=== PATIENT | female | born 1995 | race African-American/Black ===

== ENCOUNTER 2022-05-05 18:58 | Emergency (ER) | payer OTHER ==
--- OUTSIDE RECORDS SUMMARY | 2022-05-05 19:02 | XMS REPORT | Continuity of Care Document ---
:1995 Author Organization [facility] t Address [address] [place] [address] Care Team Providers Name Role Phone NEYMAR MONTERO Primary Care Physician Unavailable CLARISSA SIGALA Attending Clinician Unavailable NIRALI LAMB Attending Clinician Unavailable CHRETIEN_F Attending Clinician Unavailable Lab, Ang - Db Attending Clinician Unavailable Clarissa Sgiala MD Attending Clinician CHOCO MANE Attending Clinician Unavailable Doctor Unassigned, [place] Attending Clinician Unavailable Mary Harden Attending Clinician [phone] WATERS_S Attending Clinician Unavailable Melanie Briones Attending Clinician [phone] ARMEN MERCER Attending Clinician Unavailable Armen Herrera Attending Clinician CRESCENCIO Attending Clinician Unavailable Michelle Cash Attending Clinician [phone] Allyn Cárdenas MA Attending Clinician Unavailable CHRETIEN_F Admitting Clinician Unavailable WATERS_S Admitting Clinician Unavailable JOURDANROCARLOS_Jayda Admitting Clinician Unavailable Payers Payer Name Policy Type Policy Number Effective Date Expiration Date [facility] [id number] 2021 00:00:00 INDIGENT PROGRAM [id number] Problems Condition Condition Condition Status Onset Resolution Last Treating Co mments Source Name Details Category Date Date Treatment Clinician Date PENDING PENDING Diagnosis Active 2021-062022-04-15 Memoria Active 0 12:31:00 l 03/28/2022 00:00: Justin jefferson 00 [facility] Conjunctiv Problem Active S [place] itis itis 6-28 Communi 00:00: ty 00 [facility] Acute Acute Problem Active [place] conjunctiv Conjunctiv 6-28 Co mmuni itis of itis of 00:00: ty bilateral Bilateral 00 [facility] Clinics Generalize Generalize Problem Active S [place] d anxiety d Anxiety 03-04 Comm uni disorder Disorder 00:00: ty 00 [facility] Oral Oral Problem Active [place] contracept Contracept 03-04 Co mmuni ion ion 00:00: ty 00 [facility] Polycystic Polycystic Problem Active S [place] ovary Ovary 03-04 Communi syndrome Syndrome 00:00: ty 00 [facility] Non-rheuma Non-rheuma Problem Active S [place] tic mitral tic Mitral 5-28 Co mmuni regurgitat Regurgitat 00:00: ty ion ion 00 [facility] Elevated Elevated Problem Active [place] blood-pres Blood-pres 5-28 Co mmuni sure sure 00:00: ty reading Reading 00 Hospita without without l diagnosis Diagnosis Clin ics of of hypertensi Hypertensi on on Family Family Problem Active [place] history of History of 5-28 Co mmuni Cardiovasc Cardiovasc 00:00: ty [facility] Clin[facility] Morbid Morbid Disease Active Univers obesity obesity 09-23 ity of due to due to 00:00: [place] excess excess 00 Medical calories calories Branch Controlled Controlled Disease Active U nivers type 2 type 2 09-23 ity of diabetes diabetes 00:00: [place] mellitus mellitus 00 Medica l without without Branch complicati complicati on, on, without without long-term long-term current current use of use of insulin insulin Hypertensi Hypertensi Disease Active U nivers on on 09-23 ity of 00:00: [place] 00 Medical Branch Allergies, Adverse Reactions, Alerts Allergy Allergy Status Severity Reaction(s) Onset Inactive Treating Comm ents Source Name Type Date Date Clinician Flu Propensi Active [facility] Medicine ty to 09-14 ity of adverse 00:00: [place] reaction 00 Medical s Branch FLU DRUG Active High [facility] MEDICINE - ity of 00:00: [place] 00 Medical Branch Social History Social Habit Start Date Stop Date Quantity Comments Source Exposure to 2022-04-23 2022-05-03 Not sure [facility] SARS-CoV-2 00:00:00 13:44:00 [facility] (event) Branch Alcohol intake 2021-03-02 2021-03-02 Current University 00:00:00 00:00:00 non-drinker of [facility] alcohol (finding) [place] Tobacco use and 2018-09-14 2018-09-14 Smokeless tobacco Un iversity of exposure 00:00:00 00:00:00 [facility]user [facility]igned At [birth year] [facility] Smoking Status Start Date Stop Date Source Never smoked tobacco [facility] Medications Ordered Filled Start Stop Current Ordering Indication Dosage Frequency Signature Comments Components Source Medication Medication Date Date Medication? Clinician (SIG) Name Name semaglutide 2021-06 Yes [id number] 1mg inject 1 Univers (OZEMPIC) 1 1-08 mg under ity of mg/dose (4 00:00: the skin Sid as mg/3 mL) 00 weekly. [facility] semaglutide 2021-06 Yes [id number] 1mg inject 1 Univers (OZEMPIC) 1 1-08 mg under ity of mg/dose (4 00:00: the skin Sid as mg/3 mL) 00 weekly. [facility] semaglutide 2021-06 Yes [id number] 1mg inject 1 Univers (OZEMPIC) 1 1-08 mg under ity of mg/dose (4 00:00: the skin Sid as mg/3 mL) 00 weekly. [facility] semaglutide 2021-06 Yes [id number] 1mg inject 1 Univers (OZEMPIC) 1 1-08 mg under ity of mg/dose (4 00:00: the skin Sid as mg/3 mL) 00 weekly. [facility] semaglutide 2021-0 Yes [id number] Inject 0.5 Univers (OZEMPIC) 9-23 mg weekly ity o f 0.25 mg or 00:00: [place] 0.5 mg(2 00 Medical mg/1.5 mL) Branch PnIj semaglutide 2021- No [id number] Inject 0.5 Univers (OZEMPIC) 9-23 11-08 mg weekly ity of 0.25 mg or 00:00: 00:00 [place] 0.5 mg(2 00 :00 Medical mg/1.5 mL) Branch PnIj semaglutide 2021- No [id number] Inject 0.5 Univers (OZEMPIC) 9-23 11-08 mg weekly ity of 0.25 mg or 00:00: 00:00 [place] 0.5 mg(2 00 :00 Medical mg/1.5 mL) Branch PnIj metformin 2021-0 Yes [id number] 500mg Take 1 Univers ER 500 mg 9-22 tablet by ity o f 24 hr 00:00: mouth 2 [place] tablet 00 (two) Medical times Branch daily before breakfast and dinner. metformin 2021-0 Yes [id number] 500mg Take 1 Univers ER 500 mg 9-22 tablet by ity o f 24 hr 00:00: mouth 2 [place] tablet 00 (two) Medical times Branch daily before breakfast and dinner. metformin 2021-0 Yes [id number] 500mg Take 1 Univers ER 500 mg 9-22 tablet by ity o f 24 hr 00:00: mouth 2 [place] tablet 00 (two) Medical times Branch daily before breakfast and dinner. metformin 2021-0 Yes [id number] 500mg Take 1 Univers ER 500 mg 9-22 tablet by ity o f 24 hr 00:00: mouth 2 [place] tablet 00 (two) Medical times Branch daily before breakfast and dinner. metformin 2021-0 Yes [id number] 500mg Take 1 Univers ER 500 mg 9-22 tablet by ity o f 24 hr 00:00: mouth 2 [place] tablet 00 (two) Medical times Branch daily before breakfast and dinner. metformin 2021-0 Yes [id number] 500mg Take 1 Univers ER 500 mg 9-22 tablet by ity o f 24 hr 00:00: mouth 2 [place] tablet 00 (two) Medical times Branch daily before breakfast and dinner. GLIPIZIDE 2021-0 Yes [id number] Take 1 U nivers XL 2.5 mg 9-05 tablet by ity o f 24 hr 00:00: mouth once [place] tablet 00 daily with Medical breakfast Branch GLIPIZIDE 2021-0 Yes [id number] Take 1 U nivers XL 2.5 mg 9-05 tablet by ity o f 24 hr 00:00: mouth once [place] tablet 00 daily with Medical breakfast Branch GLIPIZIDE 2021- Yes [id number] Take 1 U nivers XL 2.5 mg 9-05 tablet by ity o f 24 hr 00:00: mouth once [place] tablet 00 daily with Medical breakfast Branch GLIPIZIDE 2021- No [id number] Take 1 Univers XL 2.5 mg 9-05 11-08 tablet by ity of 24 hr 00:00: 00:00 mouth once [place] tablet 00 :00 daily with Medical breakfast Branch GLIPIZIDE 2021-2021- No [id number] Take 1 Univers XL 2.5 mg 9-05 11-08 tablet by ity of 24 hr 00:00: 00:00 mouth once [place] tablet 00 :00 daily with Medical breakfast Branch semaglutide Yes [id number] 0.25mg Univers (OZEMPIC) 6-29 weekly for ity of 0.25 mg or 00:00: 2 [place] 0.5 mg(2 00 then Medical mg/1.5 mL) increase Branc h PnIj to 0.5mg weekly if tolerate semaglutide Yes [id number] 0.25mg Univers (OZEMPIC) 6-29 weekly for ity of 0.25 mg or 00:00: 2 weeks , [place] 0.5 mg(2 00 then Medical mg/1.5 mL) increase Branc h PnIj to 0.5mg weekly if tolerate semaglutide 2021-0 Yes [id number] 0.25mg Univers (OZEMPIC) 6-29 weekly for ity of 0.25 mg or 00:00: 2 weeks , [place] 0.5 mg(2 00 then Medical mg/1.5 mL) increase Branc h PnIj to 0.5mg weekly if tolerate semaglutide 2021-0 Yes [id number] 0.25mg Univers (OZEMPIC) 6-29 weekly for ity of 0.25 mg or 00:00: 2 weeks , [place] 0.5 mg(2 00 then Medical mg/1.5 mL) increase Branc h PnIj to 0.5mg weekly if tolerate semaglutide 2021- No [id number] 0.25mg Univers (OZEMPIC) 6- 09-23 weekly for ity of 0.25 mg or 00:00: 00:00 2 weeks , [place] 0.5 mg(2 00 :00 then Medical mg/1.5 mL) increase Branc h PnIj to 0.5mg weekly if tolerate metformin Yes [id number] 1000mg Take 2 Univers ER 500 mg 6-08 tablets by ity of 24 hr 00:00: mouth 2 [place] tablet 00 (two) Medical times Branch daily before breakfast and dinner. metformin Yes [id number] 1000mg Take 2 Univers ER 500 mg 6-08 tablets by ity of 24 hr 00:00: mouth 2 [place] tablet 00 (two) Medical times Branch daily before breakfast and dinner. metformin Yes [id number] 1000mg Take 2 Univers ER 500 mg 6-08 tablets by ity of 24 hr 00:00: mouth 2 [place] tablet 00 (two) Medical times Branch daily before breakfast and dinner. metformin 2021- No [id number] 1000mg Take 2 Univers ER 500 mg 6-08 -22 tablets by ity of 24 hr 00:00: 00:00 mouth 2 [place] tablet 00 :00 (two) Medical times Branch daily before breakfast and dinner. glipiZIDE Yes [id number] 2.5mg Take 1 Univers XL 2.5 mg 6-05 tablet by ity o f 24 hr 00:00: mouth [place] tablet 00 daily with Medical breakfast. Branch glipiZIDE Yes [id number] 2.5mg Take 1 Univers XL 2.5 mg 6-05 tablet by ity o f 24 hr 00:00: mouth [place] tablet 00 daily with Medical breakfast. Branch glipiZIDE 2021- No [id number] 2.5mg Take 1 Univers XL 2.5 mg 6-05 09-05 tablet by ity of 24 hr 00:00: 00:00 mouth [place] tablet 00 :00 daily with Medical breakfast. Branch metoprolol 1-0 Yes 100mg Take 100 Un giovanni succinate 4-06 mg by ity of XL 50 mg 24 16:15: mouth 2 Sid as hr tablet 19 (two) Medical times Branch daily. metoprolol 2021-0 Yes 100mg Take 100 Un giovanni succinate 4-06 mg by ity of XL 50 mg 24 16:15: mouth 2 Sid as hr tablet 19 (two) Medical times Branch daily. metoprolol 2021-0 Yes 100mg Take 100 Un giovanni succinate 4-06 mg by ity of XL 50 mg 24 16:15: mouth 2 Sid as hr tablet 19 (two) Medical times Branch daily. metoprolol 2021-0 Yes 100mg Take 100 Un giovanni succinate 4-06 mg by ity of XL 50 mg 24 16:15: mouth 2 Sid as hr tablet 19 (two) Medical times Branch daily. metoprolol 1-0 Yes 100mg Take 100 Un giovanni succinate 4-06 mg by ity of XL 50 mg 24 16:15: mouth 2 Sid as hr tablet 19 (two) Medical times Branch daily. metoprolol 1-0 Yes 100mg Take 100 Un giovanni succinate 4-06 mg by ity of XL 50 mg 24 16:15: mouth 2 Sid as hr tablet 19 (two) Medical times Branch daily. metoprolol 1-0 Yes 100mg Take 100 Un giovanni succinate 4-06 mg by ity of XL 50 mg 24 16:15: mouth 2 Sid as hr tablet 19 (two) Medical times Branch daily. metoprolol 1-0 Yes 100mg Take 100 Un giovanni succinate 4-06 mg by ity of XL 50 mg 24 16:15: mouth 2 Sid as hr tablet 19 (two) Medical times Branch daily. metoprolol 2021-0 Yes 100mg Take 100 Un giovanni succinate 4-06 mg by ity of XL 50 mg 24 16:15: mouth 2 Sid as hr tablet 19 (two) Medical times Branch daily. glipizide glipizide No glipizide [place] ER 2.5 mg ER 2.5 mg ER 2.5 mg Communi tablet, tablet, tablet, ty extended extended extended Hos kiarra release 24 release 24 release 24 l hr TAKE 1 hr TAKE 1 hr TAKE 1 Clinics TABLET BY TABLET BY TABLET BY MOUTH ONCE MOUTH ONCE MOUTH ONCE DAILY AT DAILY AT DAILY AT THE SAME THE SAME THE SAME TIME EACH TIME EACH TIME EACH DAY WITH DAY WITH DAY WITH BREAKFAST BREAKFAST BREAKFAST metformin metformin No metformin [place] ER 500 mg ER 500 mg ER 500 mg Communi tablet,exte tablet,exte tablet,ext ty nded nded ended Hospita release 24 release 24 release 24 l hr TAKE 1 hr TAKE 1 hr TAKE 1 Clinics TABLET BY TABLET BY TABLET BY MOUTH TWICE MOUTH TWICE MOUTH DAILY DAILY TWICE DAILY metoprolol metoprolol No metoprolol [place] tartrate tartrate tartrate Com karena 100 mg 100 mg 100 mg ty tablet TAKE tablet TAKE tablet Hospita 1 TABLET BY 1 TABLET BY TAKE 1 l MOUTH TWICE MOUTH TWICE TABLET BY Clinics DAILY WITH DAILY WITH MOUTH FOOD FOR 90 FOOD FOR 90 TWICE DAYS DAYS DAILY WITH FOOD FOR 90 DAYS sertraline sertraline No 1 Q1D sertraline [place] 25 mg 25 mg 25 mg Communi tablet Take tablet Take tablet ty 1 tablet 1 tablet Take 1 Hospi ta every day every day tablet l by oral by oral every day Clin ics route as route as by oral directed. directed. route as directed. Tri-Sprinte Tri-Sprinte No Tri-Sprint [place] c (28) 0.18 c (28) 0.18 ec (28) Communi mg(7)/0.215 mg(7)/0.215 0.18 t y mg(7)/0.25 mg(7)/0.25 mg(7)/0.21 Hospita mg(7)-35 mg(7)-35 5 l mcg tablet mcg tablet mg(7)/0.25 Clinics TAKE 1 TAKE 1 mg(7)-35 TABLET BY TABLET BY mcg tablet MOUTH ONCE MOUTH ONCE TAKE 1 DAILY DAILY TABLET BY MOUTH ONCE DAILY glipizide glipizide No glipizide [place] ER 2.5 mg ER 2.5 mg ER 2.5 mg Communi tablet, tablet, tablet, ty extended extended extended Hos kiarra release 24 release 24 release 24 l hr TAKE 1 hr TAKE 1 hr TAKE 1 Clinics TABLET BY TABLET BY TABLET BY MOUTH ONCE MOUTH ONCE MOUTH ONCE DAILY AT DAILY AT DAILY AT THE SAME THE SAME THE SAME TIME EACH TIME EACH TIME EACH DAY WITH DAY WITH DAY WITH BREAKFAST BREAKFAST BREAKFAST metformin metformin No metformin [place] ER 500 mg ER 500 mg ER 500 mg Communi tablet,exte tablet,exte tablet,ext ty nded nded ended Hospita release 24 release 24 release 24 l hr TAKE 1 hr TAKE 1 hr TAKE 1 Clinics TABLET BY TABLET BY TABLET BY MOUTH TWICE MOUTH TWICE MOUTH DAILY DAILY TWICE DAILY metoprolol metoprolol No metoprolol [place] tartrate tartrate tartrate Com [place] 100 mg 100 mg 100 mg ty tablet TAKE tablet TAKE tablet Hospita 1 TABLET BY 1 TABLET BY TAKE 1 l MOUTH TWICE MOUTH TWICE TABLET BY Clinics DAILY WITH DAILY WITH MOUTH FOOD FOR 90 FOOD FOR 90 TWICE DAYS DAYS DAILY WITH FOOD FOR 90 DAYS Tri-Sprinte Tri-Sprinte No Tri-Sprint [place] c (28) 0.18 c (28) 0.18 ec (28) Communi mg(7)/0.215 mg(7)/0.215 0.18 t y mg(7)/0.25 mg(7)/0.25 mg(7)/0.21 Hospita mg(7)-35 mg(7)-35 5 l mcg tablet mcg tablet mg(7)/0.25 Clinics TAKE 1 TAKE 1 mg(7)-35 TABLET BY TABLET BY mcg tablet MOUTH ONCE MOUTH ONCE TAKE 1 DAILY DAILY TABLET BY MOUTH ONCE DAILY glipizide glipizide No glipizide [place] ER 2.5 mg ER 2.5 mg ER 2.5 mg Communi tablet, tablet, tablet, ty extended extended extended Hos kiarra release 24 release 24 release 24 l hr TAKE 1 hr TAKE 1 hr TAKE 1 Clinics TABLET BY TABLET BY TABLET BY MOUTH ONCE MOUTH ONCE MOUTH ONCE DAILY WITH DAILY WITH DAILY WITH BREAKFAST BREAKFAST BREAKFAST metformin metformin No metformin [place] ER 500 mg ER 500 mg ER 500 mg Communi tablet,exte tablet,exte tablet,ext ty nded nded ended Hospita release 24 release 24 release 24 l hr TAKE 2 hr TAKE 2 hr TAKE 2 Clinics TABLETS BY TABLETS BY TABLETS BY MOUTH TWICE MOUTH TWICE MOUTH DAILY DAILY TWICE BEFORE BEFORE DAILY BREAKFAST BREAKFAST BEFORE AND BEFORE AND BEFORE BREAKFAST SUPPER SUPPER AND BEFORE SUPPER metoprolol metoprolol No metoprolol [place] tartrate tartrate tartrate Com [place] 100 mg 100 mg 100 mg ty tablet TAKE tablet TAKE tablet Hospita 1 TABLET BY 1 TABLET BY TAKE 1 l MOUTH TWICE MOUTH TWICE TABLET BY Clinics DAILY WITH DAILY WITH MOUTH FOOD FOOD TWICE DAILY WITH FOOD polymyxin B polymyxin B No polymyxin [place] sulfate sulfate B sulfate Comm uni 10,000 10,000 10,000 ty unit-trimet unit-trimet unit-trime Hospita hoprim 1 hoprim 1 thoprim 1 l mg/mL eye mg/mL eye mg/mL eye Clinics drops drops drops INSTILL 1 INSTILL 1 INSTILL 1 DROP INTO DROP INTO DROP INTO AFFECTED AFFECTED AFFECTED EYE(S) BY EYE(S) BY EYE(S) BY OPHTHALMIC OPHTHALMIC OPHTHALMIC ROUTE EVERY ROUTE EVERY ROUTE 6 HOURS 6 HOURS EVERY 6 HOURS Vital Signs Vital Name Observation Time Observation Value Comments Source Systolic blood 2022-05-03 19:51:00 138 mm[Hg] [facility] Diastolic blood 2022-05-03 19:51:00 90 mm[Hg] [facility] Heart rate 2022-05-03 19:51:00 90 /min [facility] Body weight 2022-05-03 19:51:00 164.338 kg [facility] BMI 2022-05-03 19:51:00 64.18 kg/m2 [facility] Oxygen saturation 2022-05-03 19:51:00 97 /min [facility] in Arterial blood [facility] by Pulse oximetry BP Diastolic 2021-12-21 00:00:00 63 mm[Hg] [facility] Height 2021-12-21 00:00:00 64 [in_i] [facility] s BMI (Body Mass 2021-12-21 00:00:00 61.2 kg/m2 [facility] s BP Systolic 2021-12-21 00:00:00 143 mm[Hg] [facility] s Body Weight 2021-12-21 00:00:00 5708.8 [oz_av] [facility] s BP Diastolic 2021-08-06 00:00:00 86 mm[Hg] [facility] s Height 2021-08-06 00:00:00 64 [in_i] [facility] BMI (Body Mass 2021-08-06 00:00:00 60.7 kg/m2 [facility] s BP Systolic 2021-08-06 00:00:00 152 mm[Hg] [facility] Body Weight 2021-08-06 00:00:00 5660.8 [oz_av] [facility] s BP Diastolic 2021-03-04 00:00:00 85 mm[Hg] [facility] s Height 2021-03-04 00:00:00 64 [in_i] [facility] s BMI (Body Mass 2021-03-04 00:00:00 57.4 kg/m2 [facility] s BP Systolic 2021-03-04 00:00:00 156 mm[Hg] [facility] Body Weight 2021-03-04 00:00:00 5350.4 [oz_av] [facility] s Procedures Procedure Date / Time Performing Clinician Source Performed POCT HEMOGLOBIN A1C TEST 2022-05-03 20:00:00 Clarissa Sigala [facility] INSURANCE CORRESPONDENCE 2022-01-26 05:01:00 Doctor Unassigned, [facility] [place] [facility] Whole Blood Clotting Time 2018-02-24 00:00:00 [facility] Appendectomy [facility] [place] [facility] Plan of Care Planned Activity Planned Date Details Comments Source Diagnostic Test 2021-03-04 rapid SARS CoV 2 [facility] Pending 00:00:00 QL IA, respiratory Hospital Clinics specimen [code = rapid SARS CoV 2 Ag, QL IA, respiratory specimen] Diagnostic Test 2021-03-[address] test, [facility] Pending 00:00:00 urine [code = Hospital Clini cs test, urine] Instructions [facility] s Encounters Start End Encounter Admission Attending Care Care Encounter Source Date/Time Date/Time Type Type Clinicians Facility Department ID 2022-05-05 Outpatient [id number] Memoria 19:01:07 [id number] 2022-05-03 Outpatient [id number] [id number] Memoria 14:35:37 [id number] [place] [id number] 2022-05-05 2022-05-05 Outpatient CHRETIEN_F [facility] [id number] - [place] 00:00:00 00:00:00 110 Commun i ty Hospita l Clinics 2022-05-03 2022-05-03 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, 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 - Colin [facility] 1.2.840.1 [id number] Univers 14:45:00 15:00:00 [facility] [id number] [facility] 4.2.7.2.686 Sid as TERRANCE?BLEA [id number] [facility] [address] MEDICAL OFFICE BUILDING 2022-05-03 2022-05-03 Outpatient R JOVON [facility] [id number] Univers 14:00:00 14:23:15 [facility] 2022-05-03 2022-05-03 [facility] [id number] Univers 14:00:00 14:23:15 Visit Psychiatric hospital [id number] it y [facility] 4.2.7.2.686 Sid as TERRANCE?BLEA [id number] [address] MEDICAL OFFICE BUILDING 2022-05-03 2022-05-03 Patient Jovon [facility] 1.2.840.114 [id number] Univers 00:00:00 00:00:00 [facility] [id number] ity of [place]2.7.2.686 [place] C[place] [id number] Danielle Arriaga [address] [facility] 2022-04-12 2022-04-12 Outpatient ANTONIETTA, JUDYSE MALVIN 9600 MH 14:00:00 14:00:00 OBMARQUISRUMBora rendon [facility] 2022-03-17 2022-03-17 Refill Sigala, [facility] 1.2.840.114 [id number] Univers 00:00:00 00:00:00 [facility] [id number] it y of [place] 4.2.7.2.686 Sid as TERRANCE?BLEA [id number] [address] MEDICAL OFFICE [facility] 2022-03-17 2022-03-17 Refill Sigala, [facility] 1.2.840.114 [id number] Univers 00:00:00 00:00:00 [facility] HEALTH [id number] it y of [place] 4.2.7.2.686 Sid as TERRANCE?BLEA [id number] [address] OFFICE [facility] 2022-02-27 2022-02-27 Refill Sigala, [facility] 1.2.840.114 [id number] Univers 00:00:00 00:00:00 [facility] [id number] it y of [place] 4.2.7.2.686 Sid as TERRANCE?BLEA [id number] [address] OFFICE [facility] 2022-01-26 2022-01-26 Patient Jovon, [facility] 1.2.840.114 [id number] Univers 00:00:00 00:00:00 Secure Msg [place] MULTISPEC [id number] ity of [place]2.686 [place] [id number] [facility] AND OLIVER [address] [place] [address] DIABETES CLINIC 2022-01-26 2022-01-26 Orders Doctor ARIANNA 1.2.840.114 [id number] Univers 00:00:00 00:00:00 Only Unassigned, PJ 350.1.13.10 ity of [place] [facility] 4.2.7.2.686 Sid as [id number] [facility] 009 Branch 2021-12-22 2021-12-22 Patient Sigala, [facility] 1.2.840.114 [id number] Univers 00:00:00 00:00:00 Secure Msg [place] MULTISPEC [id number] ity of [place] 4[place]2.7.2.686 [place] [id number] [facility] AND BOYD [address] DIABETES CLINIC 2021-12-21 2021-12-21 Outpatient CHRETIEN_F [facility] 87 - [place] 00:00:00 00:00:00 628 Commun i ty Hospita [facility] 2021-12-21 2021-12-21 Outpatient Fina [facility] [id number] 00:00:00 00:00:00 Mary [id number] 2021-12-21 2021-12-21 Mary [facility] [place] 00:00:00 00:00:00 Fina [facility] mmuni 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 2021-12-01 2021-12-01 [facility] 1.2.840.114 [id number] Univers 14:00:00 14:36:10 Visit Psychiatric hospital [id number] it y of [place] 4.2.7.2.686 Sid as TERRANCE?BLEA [id number] Tx roxanaken [facility] [address] MEDICAL OFFICE BUILDING 2021-12-01 2021-12-01 [facility] [id number] Univers 14:00:00 14:36:10 [facility] ity [facility] 2021-12-01 2021-12-01 [facility] [id number] Univers 14:00:00 14:00:00 [facility] ity [facility] 2021-12-01 2021-12-01 Orders Doctor KELLER 1.2.840.114 [id number] Univers 00:00:00 00:00:00 Only Unassigned, PJ 350.1.13.10 ity of [place] [facility] 4.2.7.2.686 Sid as [id number] [facility] 009 Branch 2021-11-28 2021-11-28 Refill Sigala, [facility] 1.2.840.114 [id number] Univers 00:00:00 00:00:00 [facility] HEALTH 350.1.13.10 it y of [place] 4.2.7.2.686 Sid as TERRANCE?BLEA [id number] [address] MEDICAL OFFICE [facility] 2021-11-28 2021-11-28 Refill Sigala, [facility] 1.2.840.114 [id number] Univers 00:00:00 00:00:00 [facility] HEALTH [id number] it y of [place] 4.2.7.2.686 Sid as TERRANCE?BLEA [id number] [address] MEDICAL OFFICE BUILDING 2021-11-01 2021-11-01 Refill Sigala, [facility] 1.2.840.114 [id number] Univers 00:00:00 00:00:00 [facility] [id number] it y of [place] [id number] Sid as TERRANCE?BLEA [phone] [address] MEDICAL OFFICE [facility] 2021-08-08 2021-08-08 Refill Sigala, [facility] 1.2.840.114 [id number] Univers 00:00:00 00:00:00 [facility] HE[facility] [id number] it y of [place] [id number] Sid as TERRANCE?BLEA [phone] [address] OFFICE [facility] 2021-08-08 2021-08-08 Refill Sigala, [facility] 1.2.840.114 [id number] Univers 00:00:00 00:00:00 [facility] [id number] it y of [place] [id number] Sid as TERRANCE?BLEA [phone] [address] OFFICE [facility] 2021-08-06 2021-08-06 Outpatient ANALI_S [facility] [id number] 0220 [place] 12:23:00 12:23:00 211 [facility] 2021-08-06 2021-08-06 Outpatient Anali [facility] [id number] 00:00:00 00:00:00 Melanie [id number] 2021-08-06 2021-08-06 Melanie [facility] [place] [facility] [place] [id number] 11 [place] 00:00:00 00:00:00 BrionesFrandy ELEVATOR CONSTRUCTOR HYDRAULIC-ASSET ANALYST-C: Hospital - ty [address] [facility] [address], [place] [address] , Ph. 2021-07-28 2021-07-28 Emergency X [facility] [id number] Univers 16:06:00 18:34:00 ARMEN [facility] 2021-07-28 2021-07-28 [facility] 1.2.840.114 [id number] Univers 16:06:00 18:34:00 Armen Altamirano [facility] 350.1.13.10 i ty [facility] [id number] [facility] [phone] [address] 2021-07-14 2021-07-14 Outpatient ANALI_S [facility] [id number] 0220 [place] 12:37:00 12:37:00 119 Commun i ty [facility] 2021-03-04 2021-03-04 Outpatient [facility] 870 [place] 04:59:00 04:59:00 _L 909 Commun i ty [facility] 2021-03-04 2021-03-04 Michelle Cobb [facility] [place] [facility] [place] 202 23876 [place] 00:00:00 00:00:00 [facility] BERNADETTE juanP-C: Hospital - ty [address] [facility] [address], [place] [address] , Ph. 2021-03-04 2021-03-04 Outpatient [facility] c18 [id number] 00:00:00 00:00:00 , Michelle [id number] Jordyn [id number] 2021-03-02 2021-03-02 [facility] 1.2.840.114 [id number] Univers 15:34:01 16:07:25 Visit Replaced By [facility] 350.1.13.10 it y of [place] 4.2.7.2.686 Sid as Terrance?Blea [phone] [facility] [address] Medical Office Building 2021-03-02 2021-03-02 Outpatient R JOVON [facility] [id number] Univers 16:00:00 16:00:00 WENTONG ity [facility] 2021-03-02 2021-03-02 Orders Doctor ARIANNA 1.2.840.114 [id number] Univers 00:00:00 00:00:00 Only Unassigned, PJ 350.1.13.10 ity of [place] [facility] 4.2.7.2.686 Sid as [phone] [address] 2021-02-04 2021-02-04 Case Alicia Cárdenas 1.2.840.114 [id number] Univers 00:00:00 00:00:00 Management Allyn Ordonez 350.1.13.10 it[place] [phone] [address] 2021-02-04 2021-02-04 Telephone Alicia Cárdenas [id number] Univers 00:00:00 00:00:00 Allyn Ordonez 350.1.13.10 it [place] [phone] [address] 2020-10-12 2020-10-12 Orders Doctor ARIANNA 1.2.840.114 [id number] Univers 00:00:00 00:00:00 Only Unassigned, PJ 350.1.13.10 ity of [place] [facility] 4.2.7.2.686 Sid as [phone] [address] 2020-10-01 2020-10-01 [facility] [id number] Univers 00:00:00 00:00:00 Wentsalinas [place] 350.1.13.10 i ty of [place] [phone] [place] [address] 2020-09-29 2020-09-29 Office [facility] 1.2.840.114 [id number] Univers 15:48:42 16:42:57 Visit Clarissa Banerjee 350.1.13.10 i ty [place] [phone] [address] 2020-09-29 2020-09-29 Outpatient R JOVON [facility] [id number] Univers 16:00:00 16:00:00 KENIAONG ity [facility] 2020-09-29 2020-09-29 Letter Doctor ARIANNA 1.2.840.114 [id number] Univers 00:00:00 00:00:00 (Out) Unassigned, PJ 350.1.13.10 ity of [place] [facility] 4.2.7.2.686 Sid as [phone] [address] 2020-09-29 2020-09-29 Letter Doctor ARIANNA 1.2.840.114 [id number] Univers 00:00:00 00:00:00 (Out) Unassigned, PJ 350.1.13.10 ity of [place] [facility] 4.2.7.2.686 Sid as [phone] [address] 2020-09-21 2020-09-21 [facility] 1.2.840.114 [id number] Univers 00:00:00 00:00:00 Clarissa Banerjee 350.1.13.10 i [place] of [place] [phone] [address] 2020-09-02 2020-09-02 [facility] [id number] Univers 15:00:00 15:00:00 [facility] 2020-04-28 2020-04-28 Office [facility] 1.2.840.114 [id number] Univers 12:55:35 13:49:25 Visit Clarissa Banerjee 350.1.13.10 i [place].2.[place] [phone] [place] [address] 2020-04-28 2020-04-28 Outpatient R JOVON [facility] [id number] Univers 13:00:00 13:00:00 WENTONG ity [facility] 2020-04-28 2020-04-28 Orders Doctor ARIANNA 1.2.840.114 [id number] Univers 00:00:00 00:00:00 Only Unassigned, PJ 350.1.13.10 [facility] 4.2.7.2.686 Sid as [phone] [address] 2020-02-03 2020-02-03 [facility] 1.2.840.114 [id number] Univers 00:00:00 00:00:00 [place] 350.1.13.10 i ty [place]2.[place] [phone] [place] [address] 2019-11-28 2019-11-28 [facility] 1.2.840.114 [id number] Univers 00:00:00 00:00:00 [place] 350.1.13.10 i ty [place] [phone] [address] 2019-10-23 2019-10-23 Telemedici [facility] 1.2.840.114 [id number] Univers 08:30:13 16:34:22 ne Visit Clarissa [place] 350.1.13.10 ity of [place].2.[place] [phone] [address] 2019-10-23 2019-10-23 Outpatient R JOVON [facility] [id number] Univers 14:00:00 14:00:00 WENTONG ity [facility] 2019-09-26 2019-09-26 [facility] 1.2.840.114 [id number] Univers 00:00:00 00:00:00 [place] 350.1.13.10 i ty [place] [phone] [address] 2019-02-11 2019-02-11 Refill Sigala, [facility] 1.2.840.114 [id number] Univers 00:00:00 00:00:00 [place] 350.1.13.10 i ty [place].2.[place] [phone] [address] 2019-02-07 2019-02-07 Refill Sigala, [facility] 1.2.840.114 [id number] Univers 00:00:00 00:00:00 [place] 350.1.13.10 i ty [place].2.[place] [phone] [address] 2019-01-31 2019-01-31 Telephone Sigala, [facility] 1.2.638.120 [id number] Univers 00:00:00 00:00:00 [place] 350.1.13.10 i ty [place].2.[place] [phone] [address] Results Test Description Test Time Test Comments Results Result Comments Source POCT HEMOGLOBIN A1C TEST 2022-05-03 20:02:00 Test Item Value Reference Range Interpretation Comme nts POCT HBA1C (test code = 4548-4) 6.0 % 4-6 [facility] [id number] 20:02:00 Test Item Value Reference Range Interpretation Comments POCT HBA1C (test code = 4548-4) 6.0 % 4-6 [facility]
[2022-05-05 20:31] LABS: Absolute Lymphocytes (CBC) 2.2 K/uL (0.7-4.9); Hematocrit 35.3 % (36.0-45.0); Lymphocytes % 33.4 % (15.3-44.8); MCV 84.4 fL (80-100); MPV 8.4 fL (7.6-11.3); RBC Red Blood Cell Count 4.18 M/uL (3.86-4.86)
[2022-05-05 20:55] LABS: Urine Blood 2+ (Negative); Urine Glucose Negative (Negative); Urine Protein Negative (Negative); Urine Specific Gravity >=1.030 (1.005-1.030); Urine pH 5.5 (5.0-7.0)
[2022-05-05 21:21] LABS: Potassium 3.8 mmol/L (3.5-5.1)
--- NOTE | 2022-05-05 21:34 | ER ---
Nurse's Notes [facility] Name: Shawna Jones Age: 27 yrs Sex: Female : 1995 Arrival Date: 05/05/2022 Time: 19:01 Bed 16 Private MD: Ev Mccabe Diagnosis: Threatened Presentation: 05/05 19:23 Chief complaint: Patient states: "My doctor called me 45 min ago. I got called that I tw5 was borderline and I have been having pain in my left ovary. She was concerned about a cyst.". Coronavirus screen: Vaccine status: Patient reports being unvaccinated. Ebola Screen: Patient negative for fever greater than or equal to 101.5 degrees Fahrenheit, and additional compatible Ebola Virus Disease symptoms Patient denies exposure to infectious person. Patient denies travel to an Ebola-affected area in the 21 days before illness onset. Initial Sepsis Screen: Does the patient meet any 2 criteria? No. Patient's initial sepsis screen is negative. Does the patient have a suspected source of infection? No. Patient's initial sepsis screen is negative. Risk Assessment: Do you want to hurt yourself or someone else? Patient reports no desire to harm self or others. Onset of symptoms is unknown. 19:23 Method Of Arrival: Ambulatory tw5 19:23 Acuity: CHARLA 3 tw5 Triage Assessment: 19:27 General: Appears uncomfortable, obese, Behavior is calm, cooperative, appropriate for tw5 age. Pain: Complains of pain in left inguinal area Pain currently is 2 out of 10 on a pain scale. Historical: - Allergies: 19:25 No Known Allergies; tw5 - Home Meds: 19:25 metformin 1,000 mg Oral tab 1 tab 2 times per day [Active]; tw5 - PMHx: 19:25 Diabetes mellitus; tw5 - Immunization history:: Flu vaccine is not up to date. Patient has never been vaccinated. - Social history:: Smoking status: . Screenin:35 Abuse screen: Denies threats or abuse. Denies injuries from another. Nutritional aa9 screening: No deficits noted. Tuberculosis screening: No symptoms or risk factors identified. Fall Risk None identified. Assessment: 19:34 General: Appears comfortable, obese, well groomed, Behavior is calm, cooperative, aa9 appropriate for age. Pain: Complains of pain in left femoral area Pain currently is 2 out of 10 on a pain scale. Also complains of spotting. Neuro: Level of Consciousness is awake, alert, obeys commands, Oriented to person, place, time, situation. Cardiovascular: Patient's skin is warm and dry. Respiratory: Airway is patent Respiratory effort is even, unlabored. GI: No signs and/or symptoms were reported involving the gastrointestinal system. : Reports vaginal bleeding that is spotty. EENT: No signs and/or symptoms were reported regarding the EENT system. Derm: Skin is intact, is healthy with good turgor. Musculoskeletal: No deficits noted. 20:35 Reassessment: Patient appears in no apparent distress at this time. General: Appears aa9 comfortable, Behavior is calm, cooperative, appropriate for age. Neuro: Level of Consciousness is awake, alert, obeys commands, Oriented to person, place, time, situation. Respiratory: Airway is patent Respiratory effort is even, unlabored. Vital Signs: 19:23 Pulse 95; Resp 18; Temp 98.2; Pulse Ox 100% on R/A; Weight 163.29 kg; Height 5 ft. 3 tw5 in. (160.02 cm); Pain 2/10; 19:29 BP 155 / 93; aa9 19:35 BP 141 / 92; Pulse 94; Resp 17 S; Pulse Ox 100% on R/A; aa9 21:23 BP 128 / 97; Pulse 89; Pulse Ox 100% on R/A; aa9 19:23 Body Mass Index 63.77 (163.29 kg, 160.02 cm) tw5 ED Course: 19:01 Patient arrived in ED. mr 19:02 Ev Mccabe is Private Physician. mr 19:25 Triage completed. tw5 19:27 Arm band placed on. tw5 19:28 Aliyah Smith, DIXON is Primary Nurse. aa9 19:31 Tomás Whiting NP is PHCP. pm1 19:31 Abraham Culver MD is Attending Physician. pm1 19:36 Patient has correct armband on for positive identification. Bed in low position. Call aa9 light in reach. Adult w/ patient. 20:20 Abo/rh Typing Sent. aa9 20:20 Basic Metabolic Panel Sent. aa9 20:20 CBC with Diff Sent. aa9 20:20 Quantitative Hcg Sent. aa9 20:55 Abo/rh Typing Sent. aa9 21:37 No provider procedures requiring assistance completed. aa9 21:43 IV discontinued, intact, bleeding controlled, No redness/swelling at site. Pressure aa9 dressing applied. Administered Medications: No medications were administered Medication: 19:36 VIS not applicable for this client. aa9 Outcome: 21:34 Discharge ordered by MD. pm1 21:43 Discharged to home ambulatory, with family. aa9 21:43 Condition: stable 21:43 Discharge instructions given to patient, family, Instructed on discharge instructions, follow up and referral plans. Demonstrated understanding of instructions, follow-up care. 21:43 Patient left the ED. aa9 Signatures: Palma Contreras Patrick, DANDRE PROFESSOR OF ANTHROPOLOGY pm1 Melyssa Mason tw5 Aliyah Smith, RN RN aa9
[2022-05-05 21:35] LABS: Urine Specific Gravity/Preg >1.030 (1.005-1.030)
--- NOTE | 2022-05-05 21:35 | EDPHYS ---
Physician Documentation [facility] Name: Shawna Jones Age: 27 yrs Sex: Female : 1995 Arrival Date: 05/05/2022 Time: 19:01 Bed 16 Private MD: Ev Mccabe ED Physician Abraham Culver HPI: 05/05 19:44 This 27 yrs old Black Female presents to ER via Ambulatory with complaints of Abnormal pm1 Lab Results. 19:44 Associated signs and symptoms: Pertinent positives: Vaginal bleeding, Pertinent pm1 negatives: abdominal pain, dysuria. Modifying factors: The patient symptoms are alleviated by nothing, the patient symptoms are aggravated by nothing. 27-year-old patient presents to the ER with complaints of abnormal lab results, beta-hCG 7 from her PCP. Patient instructed to report to the ER for evaluation. 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 Patient with trace to mild vaginal bleeding. Patient reports regular cycles every 28 days and reports she is late on her cycle 2 days. Historical: - Allergies: 19:25 No Known Allergies; tw5 - Home Meds: 19:25 metformin 1,000 mg Oral tab 1 tab 2 times per day [Active]; tw5 - PMHx: 19:25 Diabetes mellitus; tw5 - Immunization history:: Flu vaccine is not up to date. Patient has never been vaccinated. - Social history:: Smoking status: . ROS: 19:44 Constitutional: Negative for fever, chills, and weight loss, Cardiovascular: Negative pm1 for chest pain, palpitations, and edema, Respiratory: Negative for shortness of breath, cough, wheezing, and pleuritic chest pain. 19:44 Abdomen/GI: Negative for abdominal pain, nausea, vomiting, diarrhea, and constipation. 19:44 MS/Extremity: Negative for injury and deformity, Skin: Negative for injury, rash, and discoloration, Neuro: Negative for headache, weakness, numbness, tingling, and seizure. 19:44 : Positive for vaginal bleeding, Negative for urinary symptoms. 19:44 All other systems are negative. Exam: 19:44 Constitutional: This is a well developed, well nourished patient who is awake, alert, pm1 and in no acute distress. Head/Face: Normocephalic, atraumatic. 19:44 Back: No spinal tenderness. No costovertebral tenderness. Full range of motion. Skin: Warm, dry with normal turgor. Normal color with no rashes, no lesions, and no evidence of cellulitis. MS/ Extremity: Pulses equal, no cyanosis. Neurovascular intact. Full, normal range of motion. 19:44 Eyes: Exam is negative for acute changes, Conjunctiva: no acute changes, no injection. 19:44 ENT: Exam is negative for acute changes, Mouth: no acute changes, Lips: normal, moist, Oral mucosa: normal, pink and intact, moist. 19:44 Cardiovascular: Exam negative for acute changes, Rate: normal, Rhythm: regular, Pulses: no pulse deficits are appreciated. 19:44 Respiratory: Exam negative for acute changes, respiratory distress, shortness of breath. 19:44 Abdomen/GI: Inspection: obese Palpation: abdomen is soft and non-tender, in all quadrants. 19:44 Neuro: Exam negative for acute changes, Orientation: is normal, Mentation: is normal, Motor: is normal, moves all fours. Vital Signs: 19:23 Pulse 95; Resp 18; Temp 98.2; Pulse Ox 100% on R/A; Weight 163.29 kg; Height 5 ft. 3 tw5 in. (160.02 cm); Pain 2/10; 19:29 BP 155 / 93; aa9 19:35 BP 141 / 92; Pulse 94; Resp 17 S; Pulse Ox 100% on R/A; aa9 21:23 BP 128 / 97; Pulse 89; Pulse Ox 100% on R/A; aa9 19:23 Body Mass Index 63.77 (163.29 kg, 160.02 cm) tw5 MDM: 19:31 Patient medically screened. pm1 21:33 Data reviewed: vital signs. Data interpreted: Pulse oximetry: on room air is 100 %. pm1 Interpretation: normal. 21:33 Counseling: I had a detailed discussion with the patient and/or guardian regarding: the pm1 historical points, exam findings, and any diagnostic results supporting the discharge/admit diagnosis, lab results, the need for outpatient follow up, an OB/Gyne specialist, to return to the emergency department if symptoms worsen or persist or if there are any questions or concerns that arise at home. 21:40 ED course: Patient with regular menses every 28 days and she reports 2 days late on her pm1 cycle. Discussed with Dr. Culver and patient with negative urine test with beta hcg of 7. Patient with early and discussed if ultrasound is needed with Dr. Culver. Ultrasound is not needed . 05/05 19:43 Order name: Abo/rh Typing pm1 05/05 19:43 Order name: Basic Metabolic Panel; Complete Time: 21:22 pm1 05/05 19:43 Order name: CBC with Diff; Complete Time: 20:53 pm1 05/05 19:43 Order name: Quantitative Hcg; Complete Time: 21:22 pm1 05/05 20:55 Order name: Urine Dipstick-Ancillary; Complete Time: 20:58 EDMS 05/05 20:56 Order name: Urine --Ancillary (enter results); Complete Time: 21:35 mw2 05/05 19:43 Order name: IV Saline Lock; Complete Time: 20:20 pm1 05/05 19:43 Order name: Labs collected and sent; Complete Time: 20:20 pm1 05/05 19:43 Order name: NPO; Complete Time: 20:20 pm1 05/05 19:43 Order name: Urine Dipstick-Ancillary (obtain specimen); Complete Time: 20:20 pm1 05/05 19:43 Order name: Urine Test (obtain specimen); Complete Time: 20:20 pm1 Administered Medications: No medications were administered Disposition Summary: 05/05/22 21:34 Discharge Ordered Location: Home pm1 Problem: new pm1 Symptoms: have improved pm1 Condition: Stable pm1 Diagnosis - Threatened pm1 Followup: pm1 - With: Emergency Department - When: As needed - Reason: Worsening of condition Followup: pm1 - With: Private Physician - When: 2 - 3 days - Reason: Recheck today's complaints, Continuance of care, Re-evaluation by your physician Discharge Instructions: - Discharge Summary Sheet pm1 - Threatened Miscarriage pm1 Forms: - Medication Reconciliation Form pm1 - Thank You Letter pm1 - Antibiotic Education pm1 - Prescription Opioid Use pm1 Addendum: 05/12/2022 09:58 Co-signature as Attending Physician, Abraham Culver MD I agree with the assessment and c leahy plan of care. Signatures: Dispatcher [employer] EDAbraham Victoria MD MD cha Marinas, Patrick, TOOL PROGRAMMER TOOL PROGRAMMER pm1 Melyssa Mason tw5
[2022-05-05 22:18] VITALS: TEMP 98.2; O2SAT 100
[2022-05-05 22:21] VITALS: BP 128/97
== END 2022-05-05 21:43 | disposition home or self-care (01) ==
LOC: ER 18:58
DX: O20.0 Threatened abortion (principal); E11.9 Type 2 diabetes mellitus without complications; Z3A.00 Weeks of gestation of pregnancy not specified
CPT/HCPCS: 36415; 80048; 81003; 81025; 84702; 85025; 86900; 86901; 99283

== ENCOUNTER 2024-08-30 12:48 | Emergency (ER) | payer BC, OTHER ==
--- NOTE | 2024-08-30 14:05 | RAD REPORT ---
EXAM: Extremity Nonvascular Limited HISTORY: neck swelling RIGHT COMPARISON: None TECHNIQUE: Sonographic grayscale and color flow imaging of the right preauricular soft tissues includ ing the region of interest as described by the patient. FINDINGS: 1.5 cm hypoechoic, fluid collection inferior to the right ear is noted. It is uncertain if this is in the region of the parotid gland based on the submitted images. IMPRESSION: 1.5 cm complex fluid collection at the patient's focal abnormality. Based on the limited images, it i s difficult to ascertain if this is located either within or adjacent to the right parotid gland. If adjacent to the parotid gland, could be a suppurative lymph node or other nonspecific collection. If within the parotid gland, it could represent a complex parotid cyst. If better delineation of the location is necessary, recommend neck CT
--- NOTE | 2024-08-30 14:29 | ER ---
Nurse's Notes [facility] Name: Shawna Jones Age: 29 yrs Sex: Female : 1995 Arrival Date: 08/30/2024 Time: 12:48 Bed IW2 Private MD: Diagnosis: Localized swelling, mass and lump, neck-right parotid gland;Acute serous otitis media, bilateral Presentation: 08/30 13:22 Chief complaint: Patient states: she has had a bump under her right ear since March. ap3 patient states that for approx two week, thought, that her right ear has been feeling "clogged", and she was wanting to get the right ear evaluated with the bump. patient currently rates her pain as a 6/10 on the pain scale. Coronavirus screen: At this time, the client does not indicate any symptoms associated with coronavirus-19. Ebola Screen: No symptoms or risks identified at this time. Initial Sepsis Screen: Does the patient meet any 2 criteria? No. Patient's initial sepsis screen is negative. Does the patient have a suspected source of infection? No. Patient's initial sepsis screen is negative. Risk Assessment: Do you want to hurt yourself or someone else? Patient reports no desire to harm self or others. Onset of symptoms is unknown. 13:22 Method Of Arrival: Ambulatory ap3 13:22 Acuity: CHARLA 4 ap3 Triage Assessment: 13:24 General: Appears in no apparent distress. Behavior is calm, cooperative, appropriate ap3 for age. Pain: Complains of pain in right ear. EENT: Reports "clogged feeling in right ear". Neuro: Level of Consciousness is awake, alert, obeys commands, Oriented to person, place, time, situation, Appropriate for age. Cardiovascular: Patient's skin is warm and dry. Respiratory: Airway is patent Respiratory effort is even, unlabored, Respiratory pattern is regular, symmetrical. 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 - Infectious Disease History:: Denies. - Social history:: Smoking status: Patient denies any tobacco usage or history of. Screenin:25 [facility] ED Fall Risk Assessment (Adult) History of falling in the last 3 months, ap3 including since admission No falls in past 3 months (0 pts) Confusion or Disorientation No (0 pts) Intoxicated or Sedated No (0 pts) Impaired Gait No (0 pts) Mobility Assist Device Used No (0 pt) Altered Elimination No (0 pt) Score/Fall Risk Level 0 - 2 = Low Risk Oriented to surroundings, Maintained a safe environment, Educated pt \\T\\ family on fall prevention, incl call for assistance when getting out of bed, Assessed \\T\\ reinforced patient's understanding of fall precautions, Hourly rounding (assess needs \\T\\ fall precautionary measures) done, Used ambulatory aids as needed (educated on \\T\\ assisted with). Abuse screen: Denies threats or abuse. Nutritional screening: No deficits noted. Tuberculosis screening: No symptoms or risk factors identified. Vital Signs: 13:22 BP 160 / 91; Pulse 85; Resp 18; Temp 98.1; Pulse Ox 100% ; Weight 163.29 kg; Height 5 ap3 ft. 3 in. ; Pain 6/10; 13:22 Body Mass Index 63.77 (163.29 kg, 160.02 cm) ap3 13:22 Pain Scale: Adult ap3 ED Course: 12:51 Patient arrived in ED. im 13:09 Becky Brower PA-C is PHCP. sb4 13:09 Abraham Culver MD is Attending Physician. sb4 13:24 Triage completed. ap3 13:25 Arm band placed on right wrist. ap3 13:51 US Extrmty Nonvasular Limited: inferior to right ear lobe In Process Unspecified. EDMS 14:28 Aminah Bhakta MD is Referral Physician. sb4 14:41 No provider procedures requiring assistance completed. Patient did not have IV access ap3 during this emergency room visit. 14:42 Patient has correct armband on for positive identification. Provided Education on: ap3 discharge instructions. Administered Medications: No medications were administered Medication: 14:42 VIS not applicable for this client. ap3 Outcome: 14:28 Discharge ordered by . sb4 14:41 Discharged to home ambulatory, ap3 14:41 Condition: good 14:42 Discharge instructions given to patient, Instructed on discharge instructions, follow ap3 up and referral plans. medication usage, Demonstrated understanding of instructions, follow-up care, medications, Prescriptions given X 1, 14:42 Patient left the ED. ap3 Signatures: Dispatcher [employer] Shaunna Russell RN RN ap3 Becky Brower PA-C PAErica sb4 Christine Love
--- NOTE | 2024-08-30 14:29 | EDPHYS ---
Physician Documentation [facility] Name: Shawna Jones Age: 29 yrs Sex: Female : 1995 Arrival Date: 08/30/2024 Time: 12:48 Bed IW2 Private MD: ED Physician Abraham Culver HPI: 08/30 13:29 This 29 yrs old Black Female presents to ER via Ambulatory with complaints of Bump sb4 under ear. 13:29 Patient reports a swollen area right below her right earlobe for several months now. sb4 She states that she did not think anything of it but over the past few days her right ear has been feeling clogged. She is unsure if the symptoms are related. States that the bump is painful and the pain radiates down her right jaw. Denies any redness, warmth or drainage from the area. 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 - Infectious Disease History:: Denies. - Social history:: Smoking status: Patient denies any tobacco usage or history of. ROS: 13:29 Constitutional: Negative for fever, chills, and weight loss, sb4 13:29 ENT: Positive for per HPI, 13:29 Skin: Positive for swelling, of the right mastoid area, 13:29 All other systems are negative, Exam: 13:36 Head/Face: Normocephalic, atraumatic. Eyes: Extra-ocular motions intact. Periorbital sb4 areas with no swelling, redness, or edema. Respiratory: No increased work of breathing, no retractions or nasal flaring. Skin: Warm, dry with normal turgor. Normal color with no rashes, no lesions, and no evidence of cellulitis. 13:36 Constitutional: The patient appears in no acute distress, alert, awake, obese, 13:36 ENT: External ear(s): swelling, mild amount of swelling noted to in the region of the right mandibular angle, possible cyst or lymph node, TM's: fluid levels, bilaterally, Vital Signs: 13:22 BP 160 / 91; Pulse 85; Resp 18; Temp 98.1; Pulse Ox 100% ; Weight 163.29 kg; Height 5 ap3 ft. 3 in. ; Pain 6/10; 13:22 Body Mass Index 63.77 (163.29 kg, 160.02 cm) ap3 13:22 Pain Scale: Adult ap3 MDM: 13:10 Medical Screening Exam initiated sb4 14:55 Data reviewed: vital signs, nurses notes, radiologic studies, and as a result, I will sb4 discharge patient. Counseling: I had a detailed discussion with the patient and/or guardian regarding the historical points, exam findings, and any diagnostic results supporting the discharge/admit diagnosis, radiology results, the need for outpatient follow up, an ENT specialist, to return to the emergency department if symptoms worsen or persist or if there are any questions or concerns that arise at home. 08/30 13:28 Order name: US Bonilla Nonvasular Limited: inferior to right ear lobe; Complete Time: sb4 14:08 Administered Medications: No medications were administered Disposition Summary: 08/30/24 14:28 Discharge Ordered Notes: Location: Home sb4 Problem: new sb4 Symptoms: are unchanged sb4 Condition: Stable sb4 Diagnosis - Localized swelling, mass and lump, neck - right parotid gland sb4 - Acute serous otitis media, bilateral sb4 Followup: sb4 - With: Aminah Bhakta MD - When: 1 week - Reason: Further diagnostic work-up, Recheck today's complaints, Re-evaluation by your physician Discharge Instructions: - Discharge Summary Sheet sb4 - Otitis Media With Effusion, Adult sb4 Forms: - Patient Portal Instructions sb4 - Leadership Thank You Letter sb4 Prescriptions: - phenylephrine HCl 5 mg Oral tablet - take 1 tablet ORAL route every 4 to 6 hours PRN congestion/fullness; 20 tablet; sb4 Refills: 0, Product Selection Permitted Signatures: Dispatcher [employer] Shaunna Russell RN RN [email or web address] Becky Brower PA-C PA-C sb4
[2024-08-30 15:04] VITALS: BP 160/91; TEMP 98.1; O2SAT 100
== END 2024-08-30 14:42 | disposition home or self-care (01) ==
LOC: ER 12:48
DX: H66.93 Otitis media, unspecified, bilateral (principal)
CPT/HCPCS: 76882; 99283